=== PATIENT | female | born 1945 | race Caucasian/White ===

== ENCOUNTER 2024-04-20 12:06 | Emergency (ER) | payer MEDICARE ==
[~2024-04-20] VITALS: Ht 160 cm; Wt 86.7 kg
[~2024-04-20 12:06] MED LIST: ACET65TA; AMIT25TA2; CATA0.2T; COUM1TAB17; COUM1TAB18; DIOV160T5; PERC5TAB8; PERC7.5T8; PRED2.5T; PRIL20CA; ZOCO40TA
[2024-04-20] MEDS ORDERED: ISOVUE-370 76% 100ML VIAL As Ordered ONE (12:45)
[2024-04-20] MEDS ORDERED: IRBE300T25 PO (12:51)
[2024-04-20] MEDS ORDERED: LANTINJ4 (12:51)
[2024-04-20 12:55] LABS: BASO % 0.4 % (0.0-1.0); EOS # 0.1 10^3/uL (0.0-0.5); EOS % 1.6 % (0.0-3.0); HEMATOCRIT 37.6 % (36.0-47.0); HEMOGLOBIN 12.6 g/dl (12.0-15.5); LYMPH # 2.9 10^3/uL (1.5-5.0); LYMPH % 39.3 % (24.0-44.0); MEAN CORPUSCULAR HEMOGLOBIN 30.1 pg (27.0-33.0); MEAN CORPUSCULAR HGB CONC 33.5 g/dl (32.0-36.5); MONO # 0.5 10^3/uL (0.0-0.8); NEUTROPHILS # 3.7 10^3/uL (1.5-8.5); NEUTROPHILS % 50.9 % (36.0-66.0); PLATELET COUNT, AUTOMATED 245 10^3/uL (150-450); RED BLOOD COUNT 4.18 10^6/uL (4.00-5.40); WHITE BLOOD COUNT 7.3 10^3/uL (4.0-10.0)
[2024-04-20 13:07] LABS: INR 0.92; PROTHROMBIN TIME 12.7 SECONDS (12.5-14.5)
[2024-04-20 13:15] LABS: ETHYL ALCOHOL (ETHANOL) < 0.003 % (0.000-0.010); LIPASE 34 U/L (12-53)
[2024-04-20 13:16] LABS: AMYLASE 32 U/L (30-118)
[2024-04-20 13:17] LABS: ALBUMIN 3.8 G/DL (3.2-5.2); ALKALINE PHOSPHATASE 78 U/L (35-104); ALT/SGPT 24 U/L (7.0-40); AST/SGOT 22 U/L (<34); BILIRUBIN,DIRECT 0.2 MG/DL (<0.4); BILIRUBIN,TOTAL 0.8 MG/DL (0.3-1.2); TOTAL PROTEIN 7.4 G/DL (5.7-8.2)
[2024-04-20] MEDS: fentaNYL 100 MCG/2 ML INJECTION IV PRN (16:02)
[2024-04-20 17:53] LABS: AMPHETAMINES LEVEL URINE NEGATIVE (NEGATIVE); BARBITURATES URINE NEGATIVE (NEGATIVE); BENZODIAZEPINES URINE NEGATIVE (NEGATIVE); CANNABINOIDS URINE NEGATIVE (NEGATIVE); COCAINE METABOLITE URINE NEGATIVE (NEGATIVE); METHADONE URINE NEGATIVE (NEGATIVE); OPIATES URINE NEGATIVE (NEGATIVE); PHENCYCLIDINE URINE NEGATIVE (NEGATIVE)
[2024-04-20] MEDS ORDERED: METF500T13 PO (19:40)
[2024-04-20 22:19] VITALS: O2SAT 97
[2024-04-20 22:30] VITALS: BP 180/81; TEMP 98.9
== END 2024-04-20 22:37 | disposition short-term general hospital (02) ==
LOC: M ED 12:06
DX: S82.101A Unspecified fracture of upper end of right tibia, initial encounter for closed fracture (principal); I45.81 Long QT syndrome; V49.40XA Driver injured in collision with unspecified motor vehicles in traffic accident, initial encounter; K59.00 Constipation, unspecified; Z96.651 Presence of right artificial knee joint; Z88.2 Allergy status to sulfonamides; Z79.899 Other long term (current) drug therapy; Z79.4 Long term (current) use of insulin; Y92.410 Unspecified street and highway as the place of occurrence of the external cause; Y93.89 Activity, other specified; Y99.9 Unspecified external cause status
CPT/HCPCS: 70450; 70486; 71045; 71260; 72125; 73140; 73590; 73610; 74177; 80047; 80076; 80307; 82077; 82150; 83605; 83690; 85025; 85610; 85730; 86850; 86900; 86901; 93005; 93041; 94760; 96374; 96376; 99285; J3010; Q9967